=== PATIENT | male | born 1975 | race Hispanic/Latino ===

== ENCOUNTER 2021-08-10 12:22 | Inpatient (IN) | payer MEDICARE ==
[~2021-08-10] VITALS: Ht 177.8 cm; Wt 73.9 kg
[2021-08-10 12:55] VITALS: BP 133/96
[2021-08-10] MEDS ORDERED: FUROSEMIDE 40MG VIAL IV ONE (13:00)
[2021-08-10 13:18] LABS: BASOPHILS % (AUTO) 0.4 % (0.0-5.0); EOSINOPHILS % (AUTO) 0.1 % (0.0-8.0); HEMATOCRIT 25.4 % (42-54); LYMPHOCYTES % (AUTO) 26.2 % (21.0-51.0); MEAN CORPUSCULAR HEMOGLOBIN 21.9 pg (27.0-33.0); MEAN CORPUSCULAR HGB CONC 30.7 g/dL (32.0-36.0); MEAN CORPUSCULAR VOLUME 71.3 fL (79-99); MONOCYTES % (AUTO) 5.6 % (3.0-13.0); PLATELET COUNT (AUTO) 374 K/uL (130-400); RED BLOOD CELL COUNT(AUTO) 3.56 MIL/uL (4.50-6.20); RED CELL DISTRIBUTION WIDTH 16.4 % (11.0-15.5); WHITE BLOOD COUNT (AUTO) 10.6 K/uL (4.8-10.8)
[2021-08-10 13:48] LABS: ALANINE AMINOTRANSFERASE 32 U/L (12-78); ALBUMIN 3.5 g/dL (3.5-5.0); ASPARTATE AMINOTRANSFERASE 16 U/L (10-37); BILIRUBIN,TOTAL 0.5 mg/dL (0.2-1.0); CARBON DIOXIDE 30 mmol/L (21-32); CHLORIDE 96 mmol/L (101-111); CREATININE 1.8 mg/dL (0.5-1.5); GLOMERULAR FILTR. RATE CALC 43 mL/min (>60); GLUCOSE,RANDOM 371 mg/dL (70-105); POTASSIUM 3.3 mmol/L (3.5-5.1); SODIUM SERUM 134 mmol/L (136-145); TOTAL PROTEIN, SERUM 7.5 g/dL (6.0-8.3); UREA NITROGEN, BLOOD 34 mg/dL (7-18)
[2021-08-10 14:00] VITALS: BP 131/88
[2021-08-10] MEDS ORDERED: POTASSIUM BICARB/CIT AC 25 MEQ TABLET.EFF PO SCH (14:00)
[2021-08-10 14:21] LABS: B-TYPE NATRIURETIC PEPTIDE 1570 pg/mL (0-100)
[2021-08-10 14:22] LABS: CRP QUANTITATIVE < 2.00 mg/L (0.00-9.0)
[2021-08-10 15:42] VITALS: BP 133/90
[2021-08-10] MEDS ORDERED: NICOTINE 7 MG/ 24 HR PATCH TD SCH (16:00)
[2021-08-10] MEDS ORDERED: LORAZEPAM 0.5 MG TABLET PO ONE (16:00)
[2021-08-10] MEDS ORDERED: KCL 20 MEQ ERTAB PO ONE (16:00)
[2021-08-10] MEDS ORDERED: IPRATROPIUM 0.5 MG/2.5 ML INH IH SCH (16:15)
[2021-08-10 16:36] LABS: % IRON SATURATION 2.4 % (30-44)
[2021-08-10 16:42] LABS: HEMOGLOBIN A1C 10.2 % (4.0-6.0)
[2021-08-10 17:12] LABS: MAGNESIUM < 2.00 mg/dL (1.80-2.40)
[2021-08-10 17:19] LABS: CREATININE,URINE RANDOM 19 mg/dL (30-135); SODIUM,URINE RANDOM 87 mmol/l (40-220)
[2021-08-10 17:23] LABS: AMPHET/METH SCREEN,URINE NEGATIVE (NEGATIVE); BARBITURATE SCREEN, URINE NEGATIVE (NEGATIVE); BENZODIAZEPINES SCREEN,URINE NEGATIVE (NEGATIVE); CANNABINOID SCREEN,URINE NEGATIVE (NEGATIVE); COCAINE SCREEN,URINE NEGATIVE (NEGATIVE); OPIATE SCREEN,URINE POSITIVE (NEGATIVE); PHENCYCLIDINE SCREEN,URINE NEGATIVE (NEGATIVE)
[2021-08-10] MEDS: INSULIN HUMULIN R 100 UNIT/ML 3ML SQ SCH ×2 (18:17→21:25)
[2021-08-10 19:30] VITALS: BP 113/78
[2021-08-10] MEDS: FUROSEMIDE 40MG VIAL IV SCH (20:34)
[2021-08-10 20:52] VITALS: BP 127/78
[2021-08-10] MEDS: PANTOPRAZOLE 40 MG TAB DR PO SCH (21:24)
[2021-08-10] MEDS: AMIODARONE 200 MG TABLET PO SCH (21:24)
[2021-08-10 23:02] VITALS: BP 127/89
[2021-08-11] VITALS: BP 122/79
[2021-08-11] MEDS ORDERED: CLOP75TA32 PO (00:03)
[2021-08-11] MEDS ORDERED: MELO15TA12 PO (00:03)
[2021-08-11] MEDS ORDERED: FURO20TA4 PO (00:03)
[2021-08-11] MEDS ORDERED: ALBU2.5V2 IH (00:03)
[2021-08-11] MEDS ORDERED: POTA-79 PO (00:03)
[2021-08-11] MEDS ORDERED: AMIO200T6 PO (00:03)
[2021-08-11] MEDS ORDERED: LORA0.5T83 PO (00:03)
[2021-08-11] MEDS ORDERED: FLUT1BLS3 IH (00:03)
[2021-08-11 04:00] VITALS: BP 148/86
[2021-08-11 04:42] LABS: BASOPHILS % (AUTO) 0.4 % (0.0-5.0); EOSINOPHILS % (AUTO) 0.7 % (0.0-8.0); HEMATOCRIT 25.7 % (42-54); LYMPHOCYTES % (AUTO) 35.8 % (21.0-51.0); MEAN CORPUSCULAR HEMOGLOBIN 21.2 pg (27.0-33.0); MEAN CORPUSCULAR HGB CONC 29.6 g/dL (32.0-36.0); MEAN CORPUSCULAR VOLUME 71.6 fL (79-99); MONOCYTES % (AUTO) 6.9 % (3.0-13.0); NEUTROPHILS % (AUTO) 55.9 % (40.0-77.0); PLATELET COUNT (AUTO) 438 K/uL (130-400); RED BLOOD CELL COUNT(AUTO) 3.59 MIL/uL (4.50-6.20); RED CELL DISTRIBUTION WIDTH 16.3 % (11.0-15.5); WHITE BLOOD COUNT (AUTO) 9.4 K/uL (4.8-10.8)
[2021-08-11 04:54] LABS: CREATININE 1.7 mg/dL (0.5-1.5); MAGNESIUM 1.9 mg/dL (1.80-2.40); PHOSPHORUS 3.1 mg/dL (2.5-4.9); POTASSIUM 3.5 mmol/L (3.5-5.1); URIC ACID 6.2 mg/dL (2.6-7.2)
[2021-08-11] MEDS: INSULIN HUMULIN R 100 UNIT/ML 3ML SQ SCH ×2 (06:35→11:37)
[2021-08-11 07:36] VITALS: BP 137/98
[2021-08-11] MEDS ORDERED: LORAZEPAM 0.5 MG TABLET PO PRN (08:30)
[2021-08-11] MEDS ORDERED: INSULIN GLARGINE 100 UNITS/ML 10 ML VIAL SQ ONE (09:00)
[2021-08-11] MEDS ORDERED: KCL 20 MEQ ERTAB PO SCH (09:00)
[2021-08-11] MEDS ORDERED: FOLIC ACID 1 MG TABLET PO SCH (09:00)
[2021-08-11] MEDS ORDERED: THIAMINE HCL 100 MG TABLET PO SCH (09:00)
[2021-08-11] MEDS ORDERED: **HM** TRELEGY ELLIPTA IH SCH (09:00)
[2021-08-11] MEDS ORDERED: Vitamin B Complex/Vit C/Folic Acid PO SCH (09:00)
[2021-08-11] MEDS: PANTOPRAZOLE 40 MG TAB DR PO SCH (09:20)
[2021-08-11] MEDS: AMIODARONE 200 MG TABLET PO SCH (09:20)
[2021-08-11] MEDS: FUROSEMIDE 40MG VIAL IV SCH (09:21)
[2021-08-11] MEDS ORDERED: CLOPIDOGREL 75MG TAB PO SCH (11:30)
[2021-08-11 12:14] VITALS: BP 122/82
== END 2021-08-11 13:09 | disposition left against medical advice (07) | DRG 292 ==
LOC: EDH 12:22 → EDHIP 15:51 → 4BH 23:38
PROVIDERS: ADMIT Internal Medicine; ATTEND Internal Medicine
DX: I11.0 Hypertensive heart disease with heart failure (principal); I69.354 Hemiplegia and hemiparesis following cerebral infarction affecting left non-dominant side; N17.9 Acute kidney failure, unspecified; Z20.822 Contact with and (suspected) exposure to COVID-19; I50.43 Acute on chronic combined systolic (congestive) and diastolic (congestive) heart failure; F41.9 Anxiety disorder, unspecified; I25.10 Atherosclerotic heart disease of native coronary artery without angina pectoris; J44.9 Chronic obstructive pulmonary disease, unspecified; E78.00 Pure hypercholesterolemia, unspecified; E78.5 Hyperlipidemia, unspecified; D50.9 Iron deficiency anemia, unspecified; F17.210 Nicotine dependence, cigarettes, uncomplicated; E87.6 Hypokalemia; E11.21 Type 2 diabetes mellitus with diabetic nephropathy; I69.328 Other speech and language deficits following cerebral infarction; F32.9 Major depressive disorder, single episode, unspecified; F11.10 Opioid abuse, uncomplicated; I42.9 Cardiomyopathy, unspecified; I25.2 Old myocardial infarction; Z95.5 Presence of coronary angioplasty implant and graft; Z79.4 Long term (current) use of insulin; Z91.19 Patient's noncompliance with other medical treatment and regimen
CPT/HCPCS: 36415; 71045; 76770; 80048; 80053; 80305; 82570; 82607; 82728; 82746; 82948; 83036; 83540; 83550; 83735; 83880; 84100; 84145; 84300; 84484; 84550; 85025; 86140; 86850; 86900; 86901; 87635; 93005; C9803; G0378; J1815; J1940

== ENCOUNTER 2021-12-03 13:34 | Inpatient (IN) | payer MEDICARE ==
[~2021-12-03] VITALS: Ht 177.8 cm; Wt 82.7 kg
[~2021-12-03 13:34] MED LIST: ALBU2.5V2 IH; AMIO200T68 PO; CLOP75TA32 PO; FLUT1BLS3 IH; FURO20TA4 PO; LORA0.5T83 PO; MELO15TA12 PO; POTA-79 PO
[2021-12-03 14:45] LABS: ALBUMIN 3.3 g/dL (3.5-5.0); BILIRUBIN,TOTAL 3.4 mg/dL (0.2-1.0); CREATININE 1.5 mg/dL (0.5-1.5); POTASSIUM 3.7 mmol/L (3.5-5.1)
[2021-12-03 15:51] LABS: BASOPHILS % (AUTO) 0.8 % (0.0-5.0); EOSINOPHILS % (AUTO) 0.2 % (0.0-8.0); HEMATOCRIT 30.5 % (42-54); LYMPHOCYTES % (AUTO) 21.9 % (21.0-51.0); MEAN CORPUSCULAR HEMOGLOBIN 16.7 pg (27.0-33.0); MEAN CORPUSCULAR HGB CONC 27.5 g/dL (32.0-36.0); MEAN CORPUSCULAR VOLUME 60.6 fL (79-99); MONOCYTES % (AUTO) 8.8 % (3.0-13.0); NUCLEATED RED BLOOD CELLS 0.3 % (0.0-0.19); PLATELET COUNT (AUTO) 367 K/uL (130-400); RED BLOOD CELL COUNT(AUTO) 5.03 MIL/uL (4.50-6.20); RED CELL DISTRIBUTION WIDTH 22.6 % (11.0-15.5); WHITE BLOOD COUNT (AUTO) 6.4 K/uL (4.8-10.8)
[2021-12-03] MEDS ORDERED: FUROSEMIDE 40MG VIAL IV ONE (16:00)
[2021-12-03 16:22] LABS: B-TYPE NATRIURETIC PEPTIDE 3150 pg/mL (0-100)
[2021-12-03 16:27] LABS: ACETAMINOPHEN < 1 mcg/mL (10-29); SALICYLATE < 2.8 mg/dL (2.8-20.0)
[2021-12-03] MEDS ORDERED: ASPIRIN 81MG CHEW TAB PO ONE (16:30)
[2021-12-03 16:37] LABS: ALCOHOL, BLOOD < 3 mg/dL (0-10)
[2021-12-03 16:54] LABS: % IRON SATURATION 5.3 % (30-44)
[2021-12-03] MEDS: NICOTINE 14 MG/ 24 HR PATCH TD SCH ×2 (17:30→21:25)
[2021-12-03] MEDS ORDERED: FOLIC ACID 1 MG TABLET PO ONE (17:30)
[2021-12-03] MEDS ORDERED: INSULIN GLARGINE 100 UNITS/ML 10 ML VIAL SQ SCH (17:30)
[2021-12-03] MEDS ORDERED: THIAMINE HCL 100 MG TABLET PO ONE (17:30)
[2021-12-03] MEDS ORDERED: INSULIN HUMULIN R 100 UNIT/ML 3ML SQ SCH (18:00)
[2021-12-03] MEDS ORDERED: ASPIRIN 81MG CHEW TAB ONE (18:07)
[2021-12-03 18:18] LABS: HEMOGLOBIN A1C 11.7 % (4.0-6.0)
[2021-12-03 18:24] LABS: CREATININE 1.5 mg/dL (0.5-1.5); POTASSIUM 3.7 mmol/L (3.5-5.1)
[2021-12-03 19:02] LABS: RAPID PLASMA REAGIN NONREACTIVE (NONREACTIVE)
[2021-12-03 20:34] LABS: CREATINE KINASE, TOTAL 46 U/L (21-232); MYOGLOBIN 43 ng/mL (10-92)
[2021-12-03] MEDS: HEPARIN 5,000 UNIT VIAL SQ SCH (20:56)
[2021-12-03] MEDS: LORAZEPAM 2 MG/ML 1 ML VIAL IVP PRN (20:56)
[2021-12-03] MEDS: PANTOPRAZOLE 40 MG TAB DR PO SCH (21:21)
[2021-12-03 21:30] VITALS: BP 112/73
[2021-12-03] MEDS: FUROSEMIDE 40MG VIAL IV SCH (21:30)
[2021-12-03 22:20] LABS: APPEARANCE,URINE Clear (CLEAR); BILIRUBIN,URINE Negative (NEGATIVE); COLOR,URINE Yellow (YELLOW); GLUCOSE, URINE (UA) >=1000 mg/dL (NEGATIVE); KETONES,URINE Negative (NEGATIVE); LEUKOCYTE ESTERASE ,URINE Negative (NEGATIVE); NITRATE,URINE Negative (NEGATIVE); OCCULT BLOOD,URINE Negative (NEGATIVE); PROTEIN,URINE Negative (NEGATIVE)
[2021-12-03] MEDS ORDERED: FURO80TA3 PO (22:25)
[2021-12-03 22:28] LABS: AMPHET/METH SCREEN,URINE NEGATIVE (NEGATIVE); BARBITURATE SCREEN, URINE NEGATIVE (NEGATIVE); BENZODIAZEPINES SCREEN,URINE NEGATIVE (NEGATIVE); CANNABINOID SCREEN,URINE NEGATIVE (NEGATIVE); COCAINE SCREEN,URINE NEGATIVE (NEGATIVE); OPIATE SCREEN,URINE POSITIVE (NEGATIVE); PHENCYCLIDINE SCREEN,URINE NEGATIVE (NEGATIVE)
[2021-12-03 22:47] LABS: BACTERIA,URINE None Seen /HPF (None Seen); MUCUS,URINE Rare LPF (None Seen); RBC,URINE None Seen /HPF (0-1); SQUAMOUS EPITHELIAL CELL,UR Rare /HPF (0-2); WBC,URINE 0-1 /HPF (0-1); YEAST,URINE BUDDING None Seen /HPF (None Seen)
[2021-12-04 00:10] VITALS: BP 97/61
[2021-12-04 04:10] VITALS: BP 103/73
[2021-12-04 04:10] LABS: % IRON SATURATION 2.9 % (30-44)
[2021-12-04 05:02] LABS: BASOPHILS % (AUTO) 0.9 % (0.0-5.0); EOSINOPHILS % (AUTO) 1.8 % (0.0-8.0); HEMATOCRIT 30.4 % (42-54); LYMPHOCYTES % (AUTO) 25.7 % (21.0-51.0); MEAN CORPUSCULAR HEMOGLOBIN 16.8 pg (27.0-33.0); MEAN CORPUSCULAR HGB CONC 27.3 g/dL (32.0-36.0); MEAN CORPUSCULAR VOLUME 61.7 fL (79-99); MONOCYTES % (AUTO) 12.1 % (3.0-13.0); NEUTROPHILS % (AUTO) 59.1 % (40.0-77.0); NUCLEATED RED BLOOD CELLS 0.4 % (0.0-0.19); PLATELET COUNT (AUTO) 361 K/uL (130-400); RED BLOOD CELL COUNT(AUTO) 4.93 MIL/uL (4.50-6.20); RED CELL DISTRIBUTION WIDTH 22.2 % (11.0-15.5); WHITE BLOOD COUNT (AUTO) 7.6 K/uL (4.8-10.8)
[2021-12-04 05:11] LABS: ALBUMIN 2.9 g/dL (3.5-5.0); BILIRUBIN,TOTAL 2.2 mg/dL (0.2-1.0); CREATININE 1.5 mg/dL (0.5-1.5); MAGNESIUM 1.8 mg/dL (1.80-2.40); POTASSIUM 3.4 mmol/L (3.5-5.1); TOTAL PROTEIN, SERUM 7.1 g/dL (6.0-8.3)
[2021-12-04] MEDS: INSULIN HUMULIN R 100 UNIT/ML 3ML SQ SCH ×7 (06:31→20:12)
[2021-12-04] MEDS: FUROSEMIDE 40MG VIAL IV SCH ×2 (07:44→20:07)
[2021-12-04] MEDS: PANTOPRAZOLE 40 MG TAB DR PO SCH ×2 (07:44→20:10)
[2021-12-04] MEDS: HEPARIN 5,000 UNIT VIAL SQ SCH ×2 (07:44→20:08)
[2021-12-04] MEDS: FOLIC ACID 1 MG TABLET PO SCH (07:44)
[2021-12-04] MEDS: THIAMINE HCL 100 MG TABLET PO SCH (07:45)
[2021-12-04 08:00] VITALS: BP 100/67
[2021-12-04] MEDS ORDERED: IPRATROPIUM 0.5 MG/2.5 ML INH IH PRN (08:30)
[2021-12-04] MEDS ORDERED: INSULIN GLARGINE 100 UNITS/ML 10 ML VIAL SQ ONE (09:00)
[2021-12-04] MEDS ORDERED: AMIODARONE 200 MG TABLET PO SCH (09:00)
[2021-12-04 12:05] VITALS: BP 105/70
[2021-12-04 15:57] VITALS: BP 104/66
[2021-12-04] MEDS: LORAZEPAM 2 MG/ML 1 ML VIAL IVP PRN (17:51)
[2021-12-04 19:28] VITALS: BP 102/72
[2021-12-04] MEDS: SACUBITRIL/VALSARTAN 1 EACH TABLET PO SCH (20:08)
[2021-12-04] MEDS: CARVEDILOL 3.125 MG TABLET PO SCH (20:10)
[2021-12-05] VITALS: BP 92/54
[2021-12-05] MEDS ORDERED: KCL 20 MEQ ERTAB PO ONE (01:30)
[2021-12-05 03:31] LABS: BASOPHILS % (AUTO) 0.5 % (0.0-5.0); EOSINOPHILS % (AUTO) 0.8 % (0.0-8.0); HEMATOCRIT 30.5 % (42-54); LYMPHOCYTES % (AUTO) 16.1 % (21.0-51.0); MEAN CORPUSCULAR HEMOGLOBIN 16.4 pg (27.0-33.0); MEAN CORPUSCULAR HGB CONC 26.2 g/dL (32.0-36.0); MEAN CORPUSCULAR VOLUME 62.4 fL (79-99); MONOCYTES % (AUTO) 6.9 % (3.0-13.0); NEUTROPHILS % (AUTO) 75.4 % (40.0-77.0); PLATELET COUNT (AUTO) 190 K/uL (130-400); RED BLOOD CELL COUNT(AUTO) 4.89 MIL/uL (4.50-6.20); RED CELL DISTRIBUTION WIDTH 23.1 % (11.0-15.5); WHITE BLOOD COUNT (AUTO) 7.8 K/uL (4.8-10.8)
[2021-12-05 03:37] LABS: CREATININE 1.4 mg/dL (0.5-1.5)
[2021-12-05 04:26] VITALS: BP 98/56
[2021-12-05] MEDS: INSULIN HUMULIN R 100 UNIT/ML 3ML SQ SCH ×6 (07:45→17:00)
[2021-12-05 07:52] VITALS: BP 105/76
[2021-12-05] MEDS: LORAZEPAM 2 MG/ML 1 ML VIAL IVP PRN (08:02)
[2021-12-05] MEDS: CARVEDILOL 3.125 MG TABLET PO SCH (09:00)
[2021-12-05] MEDS: SACUBITRIL/VALSARTAN 1 EACH TABLET PO SCH (09:00)
[2021-12-05] MEDS: FUROSEMIDE 40MG VIAL IV SCH (09:00)
[2021-12-05 10:23] VITALS: BP 81/50
[2021-12-05] MEDS: THIAMINE HCL 100 MG TABLET PO SCH (10:27)
[2021-12-05] MEDS: FOLIC ACID 1 MG TABLET PO SCH (10:27)
[2021-12-05] MEDS: PANTOPRAZOLE 40 MG TAB DR PO SCH (10:27)
[2021-12-05] MEDS: HEPARIN 5,000 UNIT VIAL SQ SCH (10:35)
[2021-12-05 12:00] VITALS: BP 99/69
[2021-12-05] MEDS ORDERED: LORAZEPAM 2 MG/ML 1 ML VIAL IVP PRN (12:30)
[2021-12-05 13:12] LABS: HEPATITIS B CORE IGM Negative (Negative); HEPATITIS Bs ANTIGEN SCREEN P Negative (Negative)
[2021-12-05 15:57] VITALS: BP 91/52
[2021-12-06] MEDS ORDERED: NICOTINE 14 MG/ 24 HR PATCH TD SCH (09:00)
== END 2021-12-05 19:30 | disposition left against medical advice (07) | DRG 291 ==
LOC: EDH 13:34 → EDHIP 17:19 → 2DH 21:51
PROVIDERS: ADMIT Hospitalist; ATTEND Hospitalist
DX: I13.0 Hypertensive heart and chronic kidney disease with heart failure and stage 1 through stage 4 chronic kidney disease, or unspecified chronic kidney disease (principal); I50.43 Acute on chronic combined systolic (congestive) and diastolic (congestive) heart failure; E87.1 Hypo-osmolality and hyponatremia; I69.354 Hemiplegia and hemiparesis following cerebral infarction affecting left non-dominant side; B17.9 Acute viral hepatitis, unspecified; E11.22 Type 2 diabetes mellitus with diabetic chronic kidney disease; E11.65 Type 2 diabetes mellitus with hyperglycemia; E78.5 Hyperlipidemia, unspecified; J44.9 Chronic obstructive pulmonary disease, unspecified; E78.00 Pure hypercholesterolemia, unspecified; F11.10 Opioid abuse, uncomplicated; F17.210 Nicotine dependence, cigarettes, uncomplicated; I25.10 Atherosclerotic heart disease of native coronary artery without angina pectoris; D50.9 Iron deficiency anemia, unspecified; I25.5 Ischemic cardiomyopathy; N18.31 Chronic kidney disease, stage 3a; Z53.29 Procedure and treatment not carried out because of patient's decision for other reasons; I51.3 Intracardiac thrombosis, not elsewhere classified; Z20.822 Contact with and (suspected) exposure to COVID-19; I34.0 Nonrheumatic mitral (valve) insufficiency; F41.9 Anxiety disorder, unspecified; I25.2 Old myocardial infarction; Z95.5 Presence of coronary angioplasty implant and graft; Z91.14 Patient's other noncompliance with medication regimen; Z91.19 Patient's noncompliance with other medical treatment and regimen; Z83.3 Family history of diabetes mellitus
CPT/HCPCS: 36415; 71045; 76700; 80048; 80053; 80074; 80305; 81001; 82550; 82948; 83036; 83540; 83550; 83735; 83874; 83880; 83930; 83935; 84132; 84145; 84443; 84484; 85025; 85651; 86140; 86592; 86701; 87040; 87390; 87635; 87804; 93005; 93306; 93356; 93970; 94664; 99291; C9803; G0378; G0481; J1644; J1815; J1940; J2060